=== PATIENT | female | born 1945 | race Caucasian/White ===

== ENCOUNTER → 2018-07-30 | Outpatient (CLI) | payer OTHER ==
[~2018-07-30] MED LIST: OMNIPAQUE 350 MG/ML, 100ML BOTTLE ONE
== END | disposition home or self-care (01) ==
LOC: CFH 12:30
PROVIDERS: ATTEND Family Medicine
DX: K57.30 Diverticulosis of large intestine without perforation or abscess without bleeding (principal); K82.8 Other specified diseases of gallbladder; M47.814 Spondylosis without myelopathy or radiculopathy, thoracic region; N94.89 Other specified conditions associated with female genital organs and menstrual cycle; D72.829 Elevated white blood cell count, unspecified
CPT/HCPCS: 74177; Q9967

== ENCOUNTER → 2018-08-25 | Outpatient (CLI) | payer OTHER ==
[~2018-08-25] MED LIST changes: +ALPR1TAB6 PO; +ARIP2TAB2 PO; +CYAN25009 PO; +FENO54TA17 PO; +LEVO75TA5 PO; +LOSA100T14 PO; +NADO20TA PO; -OMNIPAQUE 350 MG/ML, 100ML BOTTLE ONE; +PB8 PROBIOTIC PO; +VITA40TA PO; +VITAMIN D3 PO
== END | disposition home or self-care (01) ==
LOC: CFH 14:22
PROVIDERS: ATTEND Family Medicine
DX: Z12.31 Encounter for screening mammogram for malignant neoplasm of breast (principal)
CPT/HCPCS: 77067

== ENCOUNTER → 2018-08-28 | Outpatient (CLI) | payer OTHER ==
[2018-08-28 13:56] LABS: ALBUMIN 4.5 g/dL (3.4-5.0); ANION GAP 8 mmol/L (5-15); CALCIUM 9.5 mg/dL (8.5-10.1); CHLORIDE 108 mmol/L (98-107)
[2018-08-28 14:00] LABS: ALANINE AMINOTRANSFERASE 26 U/L (12-78); ALKALINE PHOSPHATASE 83 U/L (45-117); BILIRUBIN,TOTAL 1.1 mg/dL (0.2-1.0); CREATININE 1.04 mg/dL (0.55-1.02); TOTAL PROTEIN 8.9 g/dL (6.4-8.2)
== END | disposition home or self-care (01) ==
LOC: STAR 12:29
PROVIDERS: ATTEND Surgery Vascular Surgery
DX: Z01.818 Encounter for other preprocedural examination (principal); Z90.49 Acquired absence of other specified parts of digestive tract
CPT/HCPCS: 36415; 80053; 93005

== ENCOUNTER 2018-09-11 12:20 | Day surgery (SDC) | payer OTHER ==
[~2018-09-11] VITALS: Ht 157.5 cm; Wt 63.6 kg
[~2018-09-11 12:20] MED LIST changes: +BUPIVACAINE/PF 0.5% ONE; +EPINEPHRINE 1 MG/ML, 1ML ONE
[2018-09-11] MEDS ORDERED: LACTATED RINGERS 1,000 ML IV SCH (13:13)
[2018-09-11] MEDS ORDERED: FENTANYL PF 250 MCG/5ML ONE (13:26)
[2018-09-11] MEDS ORDERED: MIDAZOLAM 1 MG/ML, 2ML ONE (13:26)
[2018-09-11] MEDS ORDERED: SUCCINYLCHOLINE 20 MG/ML, 10ML ONE (13:55)
[2018-09-11] MEDS ORDERED: DEXAMETHASONE 4 MG/ML, 1ML ONE (13:55)
[2018-09-11] MEDS ORDERED: PROPOFOL 10 MG/ML, 20ML ONE (13:55)
[2018-09-11] MEDS ORDERED: ONDANSETRON 2MG/ML, 2ML ONE (13:55)
[2018-09-11] MEDS ORDERED: ROCURONIUM 10MG/ML,5ML ONE (13:55)
[2018-09-11] MEDS ORDERED: CEFAZOLIN 1,000 MG ONE (13:55)
[2018-09-11] MEDS ORDERED: ONDANSETRON 2MG/ML, 2ML IVPush PRN (15:00)
[2018-09-11] MEDS ORDERED: PROMETHAZINE 25 MG/ML, 1ML IV PRN (15:00)
[2018-09-11] MEDS ORDERED: hydrALAzine 20 MG/ML, 1ML IV PRN (15:00)
[2018-09-11] MEDS ORDERED: MEPERIDINE/PF 25MG/0.5ML IVPush PRN (15:00)
[2018-09-11] MEDS ORDERED: METOCLOPRAMIDE 5 MG/ML, 2ML IV PRN (15:00)
[2018-09-11] MEDS ORDERED: ALBUTEROL SULFATE 2.5 MG/3 ML NPPB PRN (15:00)
[2018-09-11] MEDS ORDERED: OXYcodone 5 MG/5 ML ORAL.SOL UDC PO PRN (15:00)
[2018-09-11] MEDS ORDERED: KETOROLAC 30 MG/1 ML IV PRN (15:00)
[2018-09-11] MEDS ORDERED: LABETALOL 5MG/ML, 20ML IV PRN (15:00)
[2018-09-11] MEDS ORDERED: HYDROmorphone 2 MG/ML, 1ML ONE (15:04)
[2018-09-11] MEDS ORDERED: OXYcodone 5 MG/5 ML ORAL.SOL UDC ONE (15:04)
[2018-09-11] MEDS ORDERED: FENTANYL PF 100 MCG/2ML ONE (15:04)
[2018-09-11] MEDS: HYDROmorphone 1 MG/ML, 1ML INJ IV PRN ×3 (15:10→15:42)
[2018-09-11] MEDS: FENTANYL PF 100 MCG/2ML IV PRN ×2 (15:14→15:29)
[2018-09-11] MEDS ORDERED: hydrALAzine 20 MG/ML, 1ML IV ONE (17:00)
[2018-09-11] MEDS ORDERED: hydrALAzine 20 MG/ML, 1ML ONE (17:14)
== END 2018-09-11 18:10 | disposition home or self-care (01) ==
LOC: OR 12:20
PROVIDERS: ATTEND Surgery Vascular Surgery
DX: K80.10 Calculus of gallbladder with chronic cholecystitis without obstruction (principal); I10 Essential (primary) hypertension; F41.9 Anxiety disorder, unspecified; F32.9 Major depressive disorder, single episode, unspecified; E03.9 Hypothyroidism, unspecified; F17.210 Nicotine dependence, cigarettes, uncomplicated; Z72.89 Other problems related to lifestyle; Z79.890 Hormone replacement therapy; Z79.899 Other long term (current) drug therapy; Z98.890 Other specified postprocedural states; Z80.3 Family history of malignant neoplasm of breast
CPT/HCPCS: 47562; 88304; J0171; J0330; J0360; J0690; J1100; J1170; J2250; J2405; J2704; J3010; J7120